=== PATIENT | female | born 1960 | race Two or more races ===

== ENCOUNTER 2024-11-18 17:41 | Emergency (ER) | payer MEDICAID, SELFPAY ==
[2024-11-18 17:50] VITALS: BP 129/83; PULSE 75; RESP 16; TEMP 36.6; O2SAT 97; BMI 26.2
--- NOTE | 2024-11-18 18:11 | PD.EDRME ---
Rapid Medical Screening Exam RME Arrival date/time: 11/18/24 17:41 Chief Complaint: Abdominal Pain Time Seen by Provider: 11/18/24 17:45 Vital signs: Vital Signs Temperature 97.9 F 11/18/24 17:50 Pulse Rate 75 11/18/24 17:50 Respiratory Rate 16 11/18/24 17:50 Blood Pressure 129/83 11/18/24 17:50 Pulse Oximetry (%) 97 11/18/24 17:50 Oxygen Delivery Method Room Air 11/18/24 17:50 Vital signs reviewed by provider: Yes RME Narrative: Complains of right upper quadrant complaints 2 days with vomiting (X 5/day
--- NOTE | 2024-11-18 18:18 | XR_ITS ---
Examination: Abdomen sonogram, Limited Date and time of exam: November 18, 2024 2054 hours INDICATIONS: Right upper abdominal pain beginning 3 days ago Technique: Real-time presley scale transabdominal sonographic images of the upper abdomen obtained. Findings: Normal gallbladder Common bile duct 0.6 6:00 AM no stones Pancreas obscured by bowel gas Liver 14.65 cm no liver lesions Normal hepatopedal portal venous flow Patent IVC IMPRESSION: Normal gallbladder No common bile duct stones Liver normal size
[2024-11-18 18:45] LABS: Basophils % (Auto) 0 % (0-2.5); Eosinophils # (Auto) 0.1 Thou/mm3 (0.0-0.5); Eosinophils % (Auto) 0 % (0-10); Hematocrit 45.5 % (36.0-46.0); Hemoglobin 14.8 g/dL (12.0-16.0); Immature Granulocytes % (Auto) 1 % (0-0); Immature Granulocytes Auto 0.09 Thou/mm3 (0.00-0.00); Lymphocytes # (Auto) 4.1 Thou/mm3 (1.0-4.8); Lymphocytes % (Auto) 27 % (10-50); Mean Corpuscular HGB Conc 32.5 g/dl (31.0-37.0); Mean Corpuscular Volume 83 fL (80-100); Monocytes # (Auto) 0.7 Thou/mm3 (0.0-0.8); Monocytes % (Auto) 5 % (0-12); Neutrophils # (Auto) 9.9 Thou/mm3 (1.8-7.7); Neutrophils % (Auto) 67 % (37-80); Nucleated Red Blood Cell % 0 /100 WBC (0); Platelet Count 230 Thou/mm3 (140-440); Red Blood Count 5.49 Miln/mm3 (4.00-5.20); White Blood Count 14.9 Thou/mm3 (3.6-11.0)
--- NOTE | 2024-11-18 18:56 | PD.EDABDPN ---
ED Abdominal Pain RME/HPI General Chief Complaint: Abdominal Pain Stated complaint: RUQ ABD PAIN, VOMITING X 3 DAYS, DIARRHEA Time seen by provider: 11/18/24 17:45 Arrival date/time: 11/18/24 17:41 RME / HPI RME / HPI narrative: Complains of right upper quadrant complaints 2 days with vomiting (X 5/)day DR. FLORES MAIN ED EVALUATION: 63-year-old female with history of hypertension and diabetes presenting to the emergency department via private auto who is presenting for chief/stated complaint of right upper quadrant abdominal pain, it is on the right side, sharp is intermittent, and radiates down to her right lower abdomen. Associated nausea, vomiting, and diarrhea. She is coming in today because she could not sleep last night. Decreased p.o. Daughter states that she has been giving her electrolyte water but she has not been able to tolerate it. No change with ondansetron on tonight. Patient has associated increased urgency frequency without dysuria. No sick contacts at home, no recent travel. Denies back pain or vaginal discharge. PMH: Diabetes hypertension, thyroid disease, history PSH: Hysterectomy, vaginal Social history: and lives with her . Current medications: Ozempic, metformin, hydrochlorothiazide, thyroid medication [facility] Related Data Home Medications ?Medication ?Instructions ?Recorded ?Confirmed hydrochlorothiazide 25 mg tablet 25 mg PO QDAY 11/07/18 04/03/19 metformin 500 mg tablet 500 mg PO BID 11/07/18 04/03/19 metoprolol tartrate 100 mg tablet 100 mg PO BID 11/07/18 04/03/19 hydrochlorothiazide 25 mg tablet 25 mg PO QDAY 05/03/19 Previous Rx's ?Medication ?Instructions ?Recorded ondansetron HCl 4 mg tablet 4 mg PO QID PRN nausea and 04/03/19 (Zofran) vomiting #30 tabs acetaminophen 500 mg capsule 1,000 mg (2 x 500 mg) PO Q6H PRN 06/02/23 fever or pain #30 caps albuterol sulfate 2.5 mg/3 mL 2.5 mg (3 mL) inhalation Q3-4HRPRN 06/02/23 (0.083 %) solution for nebulization PRN shortness of breath or wheezing #90 mL fluticasone propionate 115 1 puff inhalation BID #8 grams 06/02/23 mcg-salmeterol 21 mcg/actuation HFA inhaler (Advair HFA) nebulizer and compressor #1 ea 06/02/23 bacitracin 500 unit/gram topical 1 applic topical BID #28 grams 10/30/23 ointment Allergies Allergy/AdvReac Type Severity Reaction Status Date / Time No Known Allergies Allergy Verified 11/18/24 17:46 Review of Systems Review of Systems Systems Reviewed: All systems reviewed, normal except as documented Narrative Review of Systems: GEN: No fever, no chills, no weight loss, + decreased p.o. intake EYES: No discharge, no visual changes, no pain HEENT: No ear pain, no congestion, no sore throat PULM: No shortness of breath, no cough, no congestion CV: No chest pain, no dyspnea on exertion, no palpitations GI: + nausea, + vomiting, + diarrhea, + right upper quadrant abdominal pain, no constipation : + increased urgency frequency; no dysuria MUSC/SKEL: No joint pain, no back pain SKIN: No rash PSYCH: No hallucinations, no depression HEME/LYMPH: No easy bleeding or bruising tendencies NEURO: No weakness, no headache Past Medical History Past Medical History NEUROLOGIC: Positive Neurological Disorders and Migraine CARDIAC: Positive Hypertension RESPIRATORY: Positive Asthma ENDOCRINE: Positive Endocrine Disorders and Diabetes Mellitus Type 2 Social History SMOKING STATUS: Former smoker SUBSTANCE USE: does not use ALCOHOL: Never ED Exam Narrative Physical exam: GENERAL: In general the patient is awake, interactive, in an emergency department gurney. Nonseptic appearing not ill. HEAD/EYES/EARS/NOSE/THROAT: normo-cephalic, atraumatic, mucus membranes are moist. Neck is supple. CARDIOVASCULAR: regular rate and regular rhythm, no murmurs, heart sounds are not distant, strong pulses in all four extremities that are equal and symmetric bilateral upper and lower extremities, normal capillary refill. CHEST/PULMONARY: normal chest rise and fall, good air movement, clear to auscultation bilaterally, normal inspiratory to expiratory ratios without evidence of respiratory distress. ABDOMEN: Right upper quadrant tenderness palpation. Soft, no Slater sign., no masses appreciated BACK: normal range of motion without pain. NEUROLOGICAL: cranio-facial features are symmetric, moves all four extremities equally without obvious limitations or weakness. EXTREMITY: no unilateral leg swelling and no peripheral edema. SKIN: warm, dry, well-perfused, no jaundice, PSYCH: calm, cooperative, no evidence of psychosis or agitation Course Quality Measures none Orders Category Date Time Status CT Screening NOW Care 11/18/24 21:14 Completed EKG (ED ONLY) *Do not use* NOW Care 11/19/24 01:[address] abdomen pelvis w con Stat Exams 11/18/24 21:14 Completed EKG (ED Only) Stat Exams 11/19/24 01:18 Draft US gall bladder Stat Exams 11/18/24 18:18 Completed CBC Stat Lab 11/18/24 18:31 Completed Comprehensive Metabolic Panel Stat Lab 11/18/24 18:31 Completed Lipase Stat Lab 11/18/24 18:31 Completed Troponin I Stat Lab 11/18/24 18:31 Completed Urinalysis Stat Lab 11/18/24 18:44 Completed Morphine Inj Med 11/18/24 19:32 Discontinued 4 mg IVP X1 ONE Ondansetron Inj [Zofran Inj] Med 11/18/24 19:32 Discontinued 4 mg IV X1 ONE Sodium Chloride 0.9% 1000 ml [Ns] 1,000 ml Med 11/18/24 19:34 Discontinued IV 999 mls/hr Vital Signs Vital signs: Vital Signs Temperature 97.9 F 11/18/24 17:50 Pulse Rate 75 11/18/24 17:50 Respiratory Rate 16 11/18/24 17:50 Blood Pressure 129/83 11/18/24 17:50 Pulse Oximetry (%) 97 11/18/24 17:50 Oxygen Delivery Method Room Air 11/18/24 17:50 Abdominal Pain MDM MDM Narrative [facility] Narrative:: CC: Right upper quadrant abdominal pain DDX: Acute cholecystitis, gallstones, UTI, pneumonia, atypical presentation of cardiac disease. Dehydration, electro abnormality, viral syndrome EDC: Patient placed into room, IV fluids and labs are sent. Chest x-ray and right upper quadrant ultrasound are obtained. EKG is pending. Patient appears improved. She otherwise has no repeat tenderness to palpation on exam. DISPOSITION: Emergency Department nursing documentation was reviewed including triage complaint, associated symptoms, administration of medications, response to therapy and vital signs. Given the history, physical exam, and review of any performed laboratory and imaging studies the patient is being discharged in stable condition. I advised the patient to followup with their outpatient provider for further diagnostic testing and treatments as needed. Strict return precautions were given. Patient data External records reviewed:: [facility] previous records (Reviewed last admission discharge dated 10/30/23, patient admitted for the following: Multiple thermal lopez) Clinical information provided by:: patient Social determinants that could affect healthcare access:: none Patient has the following chronic illnesses:: hypertension and diabetes How is presenting disease/condition affected by chronic disease/condition?: exacerbated by Evaluation data The following diagnostics were reviewed and interpreted by me:: lab results, radiology exam(s) and EKG tracing(s) Lab and/or radiology exams considered but not ordered:: none Interpretation Summary: EKG sinus bradycardia. Heart rate 58. No ST elevations or depressions. DE interval is 201. QTc is normal at 403. Impression no ST elevation or depressions. CT abdomen with intravenous contrast EKG 711 Findings: Fatty infiltration throughout the liver No gallstones Mucosal edema involving the stomach Spleen is not enlarged No pancreatic or adrenal mass No renal or ureteral calculi, no hydronephrosis Aorta normal size Normal appendix 4.4 cm left pelvic cyst Bladder intact IMPRESSION: Gastritis pattern 4.4 cm left pelvic cyst Medications / Prescriptions Medications or Prescriptions considered but not ordered:: none Medication administrations:: Medication Administration History Discontinued Medications Sodium Chloride (Ns) 1,000 mls @ 999 mls/hr IV .Q1H1M ONE Stop: 11/18/24 20:34 Last Infusion: 11/18/24 20:54 Dose: Infused Documented By: Admin: 11/18/24 19:46 Dose: 999 mls/hr Documented By: DAVID Morphine Sulfate (Morphine Sulf Inj 10 Mg/Ml Vial) 4 mg IVP X1 ONE Stop: 11/18/24 19:33 Last Admin: 11/18/24 19:44 Dose: 4 mg Documented By: DAVID Ondansetron HCl (Ondansetron Inj 2 Mg/Ml Inj 2 Ml) 4 mg IV X1 ONE; Protocol Stop: 11/18/24 19:33 Last Admin: 11/18/24 19:45 Dose: 4 mg Documented By: DAVID see above Consultations Consultation(s) initiated? (list below): No Diagnosis Differential diagnosis abdominal pain: other (Acute cholecystitis, gallstones, UTI, pneumonia, atypical presentation of cardiac disease. Dehydration, electro abnormality, viral syndrome) Most likely diagnosis given after review of the tests above:: Diarrhea Abdominal pain Admission Indicated Admission indicated?: not indicated Admission Request Was there a request for admission?: No Disposition Plan Disposition Plan: Discharge Discharge Attestation Discharge Attestation: The patient and all family members were given an opportunity to ask questions and understood the discharge instructions. Discharge instructions specifically effects, indications for sooner follow up or return to the emergency department, and the expected course of current diagnosis. Patient condition: Stable Discharge Plan Plan Patient Disposition: HOME (Self Care) Patient condition on transfer: Stable Prescriptions/Referrals Prescriptions/Med Rec: No Action metformin 500 mg tablet 500 mg PO BID metoprolol tartrate 100 mg tablet 100 mg PO BID hydrochlorothiazide 25 mg tablet 25 mg PO QDAY hydrochlorothiazide 25 mg tablet 25 mg PO QDAY ondansetron HCl [Zofran] 4 mg tablet 4 mg PO QID PRN (Reason: nausea and vomiting) Qty: 30 0RF albuterol sulfate 2.5 mg /3 mL (0.083 %) solution for nebulization 2.5 mg INH Q3-4HRPRN PRN (Reason: shortness of breath or wheezing) Qty: 90 0RF Rx Instructions: for 3 doses acetaminophen 500 mg capsule 1,000 mg PO Q6H PRN (Reason: fever or pain) Qty: 30 0RF fluticasone propion-salmeterol [Advair HFA] 115-21 mcg/actuation HFA aerosol inhaler 1 puff INH BID Qty: 8 0RF (DME) nebulizer and compressor Device See Dose Instructions .ROUTE .MEDSUPPLY Qty: 1 0RF Dose Instruction: As directed Rx Instructions: As directed bacitracin 500 unit/gram ointment 1 applic topical BID Qty: 28 0RF Referrals: Antwon Rausch MD [Primary Care Provider] - 11/21/24 Problem List Clinical Impression: Diarrhea, Abdominal pain Patient/Caregiver Discharge Instructions Education Materials: ED Diarrhea, Unknown Cause Additional Instructions: DISCHARGE INSTRUCTIONS. Today the CAT scan does not show that you have any abnormalities we need surgery. Your ultrasound of the gallbladder shows that there were no gallstones. Even though you have been discharged from the Emergency Department, there are several things that you should do to ensure that you receive proper care: 1. DO READ your discharge instructions as these contain important information concerning your medical care. 2. If medication has been prescribed for your condition, fill the prescription as soon as possible and follow the directions on the medication. 3. RETURN AT ONCE TO THE EMERGENCY DEPARTMENT if you have any problems or concerns. These include but are not limited to fever, worsening pain(belly, chest, head, etc?), worsening shortness of breath, uncontrollable bleeding, inability to tolerate food and water, or any condition that makes you question your well-being. Also, if your symptoms do not improve in the next 12-24 hours, return to the ER or seek medical care immediately. 4. Be sure to follow up with your regular physician or specialist as instructed at discharge as this is the best way to ensure that you receive the very best of care. If you do not have a primary care physician, please contact a physician group and make an appointment. 5. Please visit [facility] for coupons regarding your prescriptions. It is a free service for you to use and can help reduce the cost of your medication. We would like to thank you for coming today and our hope is that we served you and your family well during your stay Usted rainey sido dado de homar del Departamento de Emergencias sin embargo hay algunas cosas que debe hacer para asegurarse de que usted continue recibiendo el cuidado adecuado. Por favor berto las siguientes instrucciones con atenci?n: ? 1. Si es que le dieron alguna prescripci?n (medicamento), asegurese de ir a la farmacia de romero preferencia, llenar el medicamento y tomarlo conforme a las instrucciones. ? 2. Leas las instrucciones de homar con mucho cuidado dado que contienen informaci?n importante para romero thong y cuidado. 3. REGRESE AL DEPARTAMENTO DE EMERGENCIA SI tiene alg?n tipo de problema o preocupaci?n. [place] incluye renee no esta limitado a fiebre, mucho dolor abdominal, dolor de pecho, mucho dolor de tomas, falta de aire, sangrado incontrolable, nauseas o vomitos incontrolables, inhabilidad de tolerar alimentos, o cualquier otro tipo de condici?n que le tyra cuestionar romero thong. 4. Asegurese de seguir con romero medico primario (tambien llamado medico de lizz) o con el medico especialista que le indicaron al momento del homar en 3 a 5 singh dado que esta es la mejor manera de asegurar que rodolfo recibiendo el mejor cuidado medico. ? 5. Si es que tiene un telefono inteligente (smartphone) revise la pagina web o aplicaci?n GoodRx antes de pagar por peggy prescripciones (medicinas) dado que asi podr?a encontrar un cup?n para que peggy medicinas iesha menos costosas. El servicio es gratuito. ? Le agradecemos romero visita el salvador de hoy y esperamos que romero thong mejore. Print Language: Maldivian Stand Alone Forms: Kacie Award Info., Patient Portal Info Letter
[2024-11-18 19:00] LABS: Collection Type, Urine Clean Catch; RBC,Urine 0 /hpf (0-3)
[2024-11-18 19:11] LABS: Alanine Aminotransferase 27 U/L (10-49); Albumin, Serum 5.2 gm/dL (3.4-4.8); Albumin/Globulin Ratio 1.7 (1.2-2.2); Alkaline Phosphatase 93 U/L (46-116); Anion Gap 12 (7-16); Aspartate Amino Transferase 22 U/L (0-34); BUN/Creatinine Ratio 18 Ratio (12-20); Bilirubin,Total 0.7 mg/dL (0.3-1.2); Blood Urea Nitrogen 14 mg/dL (9-23); Calcium 10.1 mg/dL (8.3-10.6); Calcium (Corrected) 10.1 mg/dL (8.5-10.1); Carbon Dioxide 28.4 mMol/L (20.0-31.0); Chloride 100 mMol/L (98-107); Creatinine (Component) 0.8 mg/dL (0.6-1.3); Estimated Creatinine Clearance 70.6 mL/min (>60); Glucose 160 mg/dL (74-106); Lipase 103 U/L (12-53); Osmolality,Calculated 282 (275-295); Potassium 4.1 mMol/L (3.4-5.1); Sodium 140 mMol/L (136-145); Total Protein 8.2 gm/dL (5.7-8.2); eGFR > 60 See Note
[2024-11-18 19:16] LABS: Bacteria,Urine Rare; Bilirubin,Urine Negative (Negative); Blood,Urine Negative (Negative); Clarity,Urine Clear (Clear/Hazy); Color,Urine Yellow (Lt Yel-Yel); Glucose, Urine Negative (Negative); Hyaline Casts,Urine < 1 /hpf (0-1); Ketones,Urine Trace (Negative); Leukocyte Esterase,Urine Positive (Negative); Nitrite,Urine Negative (Negative); Protein,Urine 1+ (Neg - Trace); Specific Gravity,Urine 1.029 (1.001-1.035); Squamous Epithelial Cell,Urine 1 /hpf (0-5); Urobilinogen,Urine Negative mg/dL (0.0-1.0); WBC,Urine 9 /hpf (0-5)
[2024-11-18 19:25] LABS: Troponin I < 0.002 ng/mL (0.0-0.045)
[2024-11-18] MEDS: MORPHINE SULF INJ 10 MG/ML VIAL 4 MG IVP (19:44)
[2024-11-18] MEDS: ONDANSETRON INJ 2 MG/ML INJ 2 ML 4 MG IV (19:45)
[2024-11-18] MEDS: SODIUM CHLORIDE 0.9% 1000 ML 1,000 ML 999 ML IV (19:46)
[2024-11-18 20:00] VITALS: BP 147/80; PULSE 69; RESP 16; O2SAT 88
--- NOTE | 2024-11-18 21:14 | XR_ITS ---
Examination: CT abdomen with intravenous contrast CT pelvis with intravenous contrast 2-D coronal reconstructions 2-D sagittal reconstructions Date and time of exam:November 18, 2024 11:07 PM INDICATIONS: Right upper abdominal pain and vomiting beginning 3 days ago. CTDI: vol (mGy) 8.51 DLP: (mGycm) 486 Technique: Multiple axial sections of the abdomen and pelvis have been obtained. 64 slice high-resolution scanner used. 3 mm axial sections have been obtained, post intravenous injection 60 cc [id number] 2-D sagittal, coronal reconstructions obtained. Low dose protocols were performed. One or more of the following dose reduction techniques were used; automated exposure control, adjustment of the mA and/or KV according to patient size, use of iterative reconstruction technique. Findings: Fatty infiltration throughout the liver No gallstones Mucosal edema involving the stomach Spleen is not enlarged No pancreatic or adrenal mass No renal or ureteral calculi, no hydronephrosis Aorta normal size Normal appendix 4.4 cm left pelvic cyst Bladder intact IMPRESSION: Gastritis pattern 4.4 cm left pelvic cyst
[2024-11-18 21:24] VITALS: BP 144/80; PULSE 67; RESP 18; O2SAT 96
[2024-11-18 22:00] VITALS: BP 146/79; PULSE 70; RESP 18; O2SAT 96
[2024-11-18 23:00] VITALS: BP 146/80; PULSE 72; RESP 18
[2024-11-19] VITALS: BP 117/55; RESP 16; O2SAT 94
[2024-11-19 01:00] VITALS: BP 118/68; RESP 18; O2SAT 92
--- NOTE | 2024-11-19 01:18 | EKG_ITS ---
[facility] Test Date: 2024-11-19 Pat Name: GERMAINE MACIEL Department: Room: - Gender: Female Merchant Miller: : 1960 Requested By: Germaine Milian Order Number: [id number] Reading MD: Germaine Milian Measurements Intervals [place] Rate: 58 P: 47 NV: 201 QRS: -23 QRSD: 90 T: 58 QT: 410 QTc: 403 Interpretive Statements SINUS BRADYCARDIA WITH SINUS ARRHYTHMIA BORDERLINE LEFT AXIS DEVIATION [QRS AXIS < -20] NONSPECIFIC T-WAVE ABNORMALITY No previous ECG available for comparison /[id number]/[email or web address]/[id number]
[2024-11-19 01:30] VITALS: BP 131/75; PULSE 60; RESP 16; TEMP 36.9; O2SAT 93
== END 2024-11-19 01:45 | disposition home or self-care (01) ==
PROVIDERS: Physician Assistant; Emergency Provider Emergency Medicine; PCP Family Medicine
DX: R19.7 Diarrhea, unspecified (principal); R10.11 Right upper quadrant pain; E11.9 Type 2 diabetes mellitus without complications; I10 Essential (primary) hypertension
CPT/HCPCS: 36415; 74177; 76705; 80053; 81001; 83690; 84484; 85025; 96360; 99285; A4649; J2270; J2405; J7030; Q9967